=== PATIENT | male | born 1975 | race Caucasian/White ===

== ENCOUNTER 2022-11-24 15:09 | Emergency (ER) | payer OTHER, SELFPAY ==
--- NOTE | ~2022-11-24 | CT_ITS ---
EXAMINATION: CT cervical spine wo con DATE: 11/24/2022 16:25 INDICATION: Head injury. TECHNIQUE: Computed tomography (CT) of the cervical spine was performed without intravenous contrast. Automated exposure control and iterative reconstruction technique were employed. The dose-length pro duct was 442.38 mGy-cm. COMPARISON: None FINDINGS: There is 7 degrees dextrocurvature of cervical spine. Vertebral body heights are normal. Th ere is mildly decreased disc height at C4-C5, severely decreased disc height at C5-C6, and moderately decreased disc height at C6-C7. The following disc levels are specifically discussed: C2-C3: There is mild left uncovertebral joint osteoarthritis. There is no facet joint osteoarthritis. There is mild left neural foraminal stenosis. There is no central canal stenosis. C3-C4: There is mild bilateral uncovertebral joint osteoarthritis. There is mild bilateral facet join t osteoarthritis. There is no neural foraminal stenosis. There is mild central canal stenosis. C4-C5: There is mild bilateral uncovertebral joint osteoarthritis. There is no facet joint osteoarthr itis. There is no neural foraminal stenosis. There is mild central canal stenosis. C5-C6: There is mild right and severe left uncovertebral joint osteoarthritis. There is mild right an d moderate left facet joint osteoarthritis. There is moderate left neural foraminal stenosis. There i s mild central canal stenosis. C6-C7: There is severe bilateral uncovertebral joint osteoarthritis. There is mild bilateral facet augustina int osteoarthritis. There is mild bilateral neural foraminal stenosis. There is mild central canal st enosis. C7-T1: There is no uncovertebral joint osteoarthritis. There is mild bilateral facet joint osteoarthr itis. There is no neural foraminal stenosis. There is no central canal stenosis. IMPRESSION: 1. No fracture. 2. Moderate cervical spondylosis. Reviewed, dictated and finalized at location A.
--- NOTE | ~2022-11-24 | CT_ITS ---
EXAMINATION: CT brain wo con DATE: 11/24/2022 16:24 INDICATION: Head injury. TECHNIQUE: Computed tomography (CT) of the head was performed without intravenous contrast. The mA wa s adjusted according to patient size. Iterative reconstruction technique was employed. The dose-lengt h product was 681.00 mGy-cm. COMPARISON: None FINDINGS: There is no intracranial hemorrhage, acute infarction, or abnormal intracranial mass lesion . The ventricles are normal in size. The orbits are normal. There is mild mucosal thickening in the p aranasal sinuses. The mastoid air cells are normal. There is a posterior scalp laceration with foci o f soft tissue gas. There is a left cheek laceration with soft tissue swelling and soft tissue gas. IMPRESSION: 1. Normal brain. Reviewed, dictated and finalized at location A. IMPRESSION: 1. Normal brain.
--- NOTE | ~2022-11-24 | CT_ITS ---
EXAMINATION: CT chest abdomen pelvis w con DATE: 11/24/2022 17:29 INDICATION: Right chest pain. Injury. TECHNIQUE: Computed tomography (CT) of the chest, abdomen, and pelvis was performed with 100 mL Omnip aque 350 intravenous contrast. Automated exposure control and iterative reconstruction technique were employed. The dose-length product was 1206.09 mGy-cm. COMPARISON: None FINDINGS: CHEST CT: The lungs demonstrate minimal atelectasis. No pleural effusion. The heart size is normal. No pericard ial effusion. There is an old Hill-Sachs fracture deformity of right humeral head. There is moderate right glenohumeral joint osteoarthritis. ABDOMEN/PELVIS CT: The liver, gallbladder, spleen, pancreas, adrenal glands, and kidneys are normal. There are punctate foci of gas superficial to the liver. There are no dilated loops of bowel. The appendix is not visual ized. There are no pathologically enlarged lymph nodes. There is no free intraperitoneal fluid. Ther e is a compression fracture of L1 with less than 1/5 loss of height. There is mild lumbar spondylosis . IMPRESSION: 1. Acute L1 compression fracture. Reviewed, dictated and finalized at location A.
--- NOTE | 2022-11-24 15:32 | ED.GENADULT ---
HPI - General Adult General Chief complaint: Head Injury Stated complaint: Ambulance Time Seen by Provider: 11/24/22 15:20 History of Present Illness HPI narrative: Trace is a previously healthy 46M that was brought in by EMS after several cow fence singh fell on him. He did lose consciousness for an unknown amount of time before EMS was called. He now has a lot of pain over his left orbit and in his right chest. However, he denies dyspnea, nausea and vomiting. Related Data Home Medications Medication Instructions Recorded Confirmed No Home Medications 11/24/22 11/24/22 Allergies Allergy/AdvReac Type Severity Reaction Status Date / Time No Known Allergies Allergy Verified 11/24/22 15:42 Review of Systems Review of Systems: All systems reviewed & are unremarkable except as noted in HPI and below Exam Const: General: healthy appearing and no acute distress Nutritional Appearance: well nourished Orientation/consciousness: patient oriented x3 HENMT: Ears: external ears normal Face/Nose/Sinus: Normal external nose present Face and sinus: normal facial exam Mouth: Yes Normal oral and palatal mucosa present Other: Contusion and swelling that is TTP over the left eye. Laceration on his left forehead. Eyes: Conjunctivae: conjunctivae normal Pupils: Equal, round and reactive pupils present Neck: Neck: normal visual inspection Chest: Chest palpation & inspection: normal inspection of the chest and tenderness other (left anterior and lateral chest ) Resp: Effort & Inspection: normal respiratory effort Auscultation: clear to auscultation bilaterally Cardio: Rate: regular rate Rhythm: regular rhythm GI: Inspection: non-distended GI Palp: Yes Soft to palpation, No Tenderness to palpation present (GI) and No Guarding due to palpation present (GI) Back/Spine/Pelvis: Back: no CVA tenderness Skin: General skin exam: normal color Rashes: no rashes Neuro: General: patient oriented x3, moves all extremities and no focal motor deficits Speech: normal speech Extrem: General: normal to inspection Psych: Mental Status: mental status grossly normal Affect: normal affect Course Course Emergency Course: He was given 4mg of morphine for pain EXAMINATION: CT brain wo con DATE: 11/24/2022 16:24 INDICATION: Head injury. TECHNIQUE: Computed tomography (CT) of the head was performed without intravenous contrast. The mA was adjusted according to patient size. Iterative reconstruction technique was employed. The dose-length product was 681.00 mGy-cm. COMPARISON: None FINDINGS: There is no intracranial hemorrhage, acute infarction, or abnormal intracranial mass lesion. The ventricles are normal in size. The orbits are normal. There is mild mucosal thickening in the paranasal sinuses. The mastoid air cells are normal. There is a posterior scalp laceration with foci of soft tissue gas. There is a left cheek laceration with soft tissue swelling and soft tissue gas. IMPRESSION: 1. Normal brain. EXAMINATION: CT cervical spine wo con DATE: 11/24/2022 16:25 INDICATION: Head injury. TECHNIQUE: Computed tomography (CT) of the cervical spine was performed without intravenous contrast. Automated exposure control and iterative reconstruction technique were employed. The dose-length product was 442.38 mGy-cm. COMPARISON: None FINDINGS: There is 7 degrees dextrocurvature of cervical spine. Vertebral body heights are normal. There is mildly decreased disc height at C4-C5, severely decreased disc height at C5-C6, and moderately decreased disc height at C6-C7. The following disc levels are specifically discussed: C2-C3: There is mild left uncovertebral joint osteoarthritis. There is no facet joint osteoarthritis. There is mild left neural foraminal stenosis. There is no central canal stenosis. C3-C4: There is mild bilateral uncovertebral joint osteoarthritis. There is mild bilateral facet joint osteoarthritis. There is no neural foraminal steno
[2022-11-24 15:40] VITALS: BP 143/94; PULSE 101; RESP 18; TEMP 35.5; O2SAT 100
[2022-11-24] MEDS: MORPHINE SULFATE (*CRX) 4 MG/ML INJ IV PUSH ×2 (15:43→16:30)
--- NOTE | 2022-11-24 16:02 | PC.NURSE ---
Pt has multiple abrasions to his forehead, complaints of pain to his chest, no difficulty breathing at this time. Wounds cleaned upon arrival to the exam room and gauze placed. Pt states he had LOC and does not remember everything that happened, halfway memory is in tact.
[2022-11-24 16:14] LABS: Basophils Absolute Auto 0.03 K/mm3 (0.00-0.10); Basophils Percent Auto 0.3 % (0.0-1.0); Eosinophils Absolute Auto 0.08 K/mm3 (0.02-0.50); Eosinophils Percent Auto 0.7 % (1.0-6.0); Hematocrit 37.4 % (40.0-54.0); Hemoglobin 12.4 g/dL (14.0-18.0); Immature Granulocyte Absolute 0.14 K/mm3 (0.00-0.00); Immature Granulocyte Percent A 1.2 % (0.0-0.0); Lymphocytes Absolute Auto 1.07 K/mm3 (1.10-4.50); Lymphocytes Percent Auto 9.2 % (18.0-42.0); Mean Corpuscular HGB Conc 33.2 g/dL (32.0-36.0); Mean Corpuscular Hemoglobin 30.6 pg (27.0-31.0); Mean Corpuscular Volume 92.3 fL (78.0-102.0); Mean Platelet Volume 9.2 fl (8.7-11.0); Monocytes Absolute Auto 0.68 K/mm3 (0.10-0.90); Monocytes Percent Auto 5.8 % (2.0-11.0); Neutrophils Absolute Auto 9.7 K/mm3 (1.7-7.2); Neutrophils Percent Auto 82.8 % (50.0-70.0); Platelet Count Result 258 K/mm3 (150-420); Red Blood Count 4.05 M/mm3 (4.70-6.10); Red Cell Distribution Width 11.9 % (11.6-14.4); White Blood Count 11.7 K/mm3 (4.8-10.8)
[2022-11-24 16:27] LABS: Alanine Aminotransferase 34 U/L (16-63); Alkaline Phosphatase 83 U/L (46-116); Anion Gap 6 mmol/L (8-16); Aspartate Amino Transferase 37 U/L (15-37); Bilirubin,Total 0.4 mg/dL (0.00-1.00); Blood Urea Nitrogen 18 mg/dL (7-18); Calcium 9.1 mg/dL (8.5-10.1); Carbon Dioxide 31 mmol/L (21-32); Chloride 106 mmol/L (98-108); Estimated CRCL calculation 88 ml/min; Estimated Glomerular Filt Rate > 60; Glucose 119 mg/dL (70-99); Lipase 24 U/L (16-77); Osmolality Calculated 298 mOsm/kg (285-295); Potassium 4.2 mmol/L (3.5-5.1); Sodium 143 mmol/L (136-145); Total Protein 7.1 g/dL (6.4-8.2)
[2022-11-24 16:30] LABS: Lactic Acid Reflex 1.5 mmol/L (0.4-2.0)
--- NOTE | 2022-11-24 16:45 | PC.NURSE ---
Pt complaining of pressure to his right chest, 01/27.
[2022-11-24 16:51] LABS: Influenza A QL RT-PCR Negative (Negative); Influenza B QL RT-PCR Negative (Negative); SARS-CoV-2 RNA PCR Negative (Negative)
[2022-11-24 16:52] LABS: RSV RNA, RT-PCR Negative (Negative)
[2022-11-24 17:25] VITALS: BP 159/98; PULSE 80; RESP 18; O2SAT 100
[2022-11-24] MEDS: HYDROmorphone HCL INJ (*CRX) 2 MG/ML VIAL 0.5 MG IV PUSH (17:29)
[2022-11-24] MEDS: SODIUM CHLORIDE 0.9% IV 1,000 ML 999 ML IV CONT (18:25)
--- NOTE | 2022-11-24 18:53 | PC.NURSE ---
Called pt's friend, Saleem Gandhi, at [phone], with pt's consent and updated him on pt being transferred to [facility] in [place].
[2022-11-24 18:55] VITALS: BP 132/66; PULSE 98; RESP 18; TEMP 36.7; O2SAT 95
--- NOTE | 2022-11-24 19:04 | PC.NURSE ---
Change of shift report given.
--- NOTE | 2022-11-24 19:28 | PC.NURSE ---
pt transferred to [facility] ER to ER by Jair MORALES
[2022-11-24 19:32] VITALS: BP 145/83; PULSE 91; RESP 17; TEMP 37.1; O2SAT 100
== END 2022-11-24 19:36 | disposition short-term general hospital (02) ==
PROVIDERS: Emergency Provider Family Medicine
DX: S32.010A Wedge compression fracture of first lumbar vertebra, initial encounter for closed fracture (principal); Z20.822 Contact with and (suspected) exposure to COVID-19; W22.8XXA Striking against or struck by other objects, initial encounter
CPT/HCPCS: 36415; 70450; 71260; 72125; 74177; 80053; 83605; 83690; 85025; 87637; 96361; 96374; 96375; 96376; 99285; J1170; J2270; J7030; Q9967